=== PATIENT | female | born 1975 | race Caucasian/White ===

== ENCOUNTER 2017-12-22 08:59 | Emergency (ER) | payer MEDICAID ==
[~2017-12-22] VITALS: Ht 152.4 cm; Wt 53.5 kg
[~2017-12-22 08:59] MED LIST: BEN50 PO
[2017-12-22 09:10] VITALS: BP 132/68
--- NOTE | 2017-12-22 09:12 | NUR ---
PT AMBULATES TO BED 10
--- NOTE | 2017-12-22 09:18 | NUR ---
ALLERGIC REACTION AFTER DRINKING VIT JUICE GIVEN BY FRIEND THIS AM. PT REPORTS GENERALIZED PRURITIS AND TAKING CLARITIN 20MG WITH MILD RELIEF. PT DENIES SOB OR CHEST PAIN. MILD REDNESS NOTED TO CATHI UPPER ARMS. PT SPEKAING FULL CLEAR SENTENCES. RESP EVEN AND UNLABORED, IN NAD. WAITING FOR ER EXAM.
--- NOTE | 2017-12-22 09:59 | NUR ---
pt. ambulated to chair, rr even and unlabored, steady gait. will continue to monitor.
[2017-12-22] MEDS ORDERED: FAMOTIDINE 20 MG TAB PO ONE (10:10)
[2017-12-22] MEDS ORDERED: DEXAMETHASONE 10 MG/ML VIAL IM ONE (10:10)
--- NOTE | 2017-12-22 10:25 | NUR ---
MEDICATED ORDERED, JACQUELINE FOR DC PAPERWORK AND EFFECTS OF MEDS.
[2017-12-22 10:51] VITALS: BP 128/71
== END 2017-12-22 10:53 | disposition home or self-care (01) ==
LOC: MED 08:59
DX: T78.1XXA Other adverse food reactions, not elsewhere classified, initial encounter (principal); T78.3XXA Angioneurotic edema, initial encounter; Z79.899 Other long term (current) drug therapy; Z91.018 Allergy to other foods; X58.XXXA Exposure to other specified factors, initial encounter
CPT/HCPCS: 96372; 99283; J1100